=== PATIENT | male | born 1970 | race Two or more races ===

== ENCOUNTER → 2023-12-25 | Outpatient (CLI) | payer OTHER, SELFPAY ==
[2023-12-25 16:24] LABS: Basophils % (Auto) 0 % (0-2.5); Eosinophils # (Auto) 0.2 Thou/mm3 (0.0-0.5); Eosinophils % (Auto) 3 % (0-10); Hematocrit 40.3 % (41.0-53.0); Hemoglobin 14.1 g/dL (13.5-16.0); Immature Granulocytes % (Auto) 0 % (0-0); Immature Granulocytes Auto 0.02 Thou/mm3 (0.00-0.00); Lymphocytes # (Auto) 2.8 Thou/mm3 (1.0-4.8); Lymphocytes % (Auto) 38 % (10-50); Mean Corpuscular Hemoglobin 30.9 pg (25.0-35.0); Mean Corpuscular Volume 88 fL (80-100); Monocytes # (Auto) 0.5 Thou/mm3 (0.0-0.8); Monocytes % (Auto) 6 % (0-12); Neutrophils # (Auto) 3.9 Thou/mm3 (1.8-7.7); Neutrophils % (Auto) 53 % (37-80); Nucleated Red Blood Cell % 0 /100 WBC (0); Platelet Count 258 Thou/mm3 (140-440); RDW Standard Deviation 42.1 fL (35.1-43.9); Red Blood Count 4.56 Miln/mm3 (4.50-5.90); White Blood Count 7.5 Thou/mm3 (3.8-10.6)
[2023-12-25 16:44] LABS: Alanine Aminotransferase 38 U/L (10-49); Albumin, Serum 4.6 gm/dL (3.5-5.0); Albumin/Globulin Ratio 2.2 (1.2-2.2); Alkaline Phosphatase 100 U/L (46-116); Anion Gap 5 (7-16); Aspartate Amino Transferase 23 U/L (0-34); BUN/Creatinine Ratio 19 Ratio (12-20); Bilirubin,Total 0.3 mg/dL (0.3-1.2); Blood Urea Nitrogen 15 mg/dL (9-23); Calcium 9.5 mg/dL (8.3-10.6); Calcium (Corrected) 9.5 mg/dL (8.5-10.1); Carbon Dioxide 30.3 mMol/L (20.0-31.0); Chloride 103 mMol/L (98-107); Creatinine (Component) 0.8 mg/dL (0.6-1.3); Globulin 2.1 gm/dL (2.3-3.5); Glucose 97 mg/dL (74-106); Osmolality,Calculated 276 (275-295); Sodium 138 mMol/L (136-145); Total Protein 6.7 gm/dL (5.7-8.2); eGFR > 60 See Note
[2023-12-25 16:45] LABS: Glucose Estimated Average 105 mg/dL (80-131); Hemoglobin A1C 5.3 % Hgb (4.8-6.0)
== END | disposition home or self-care (01) ==
LOC: COPL 15:39
PROVIDERS: PCP Family Medicine; Referring Provider Specialist; Visit Provider Specialist
DX: K21.00 Gastro-esophageal reflux disease with esophagitis, without bleeding (principal); K44.9 Diaphragmatic hernia without obstruction or gangrene; R13.14 Dysphagia, pharyngoesophageal phase
CPT/HCPCS: 36415; 80053; 83036; 85025

== ENCOUNTER 2023-12-28 16:00 | Day surgery (SDC) | payer OTHER, SELFPAY ==
[2023-12-28] VITALS (8 sets, daily range): BP systolic 124–156; BP diastolic 81–102; PULSE 72–112; RESP 12–16; TEMP 36.1–36.8; O2SAT 95–100; BMI 27.3
--- NOTE | 2023-12-28 15:50 | EDNOTE_ITS ---
ED General RME/HPI General Arrival date/time: 12/28/23 15:22 53-year-old male presents emergency department today stating had endoscopy today patient was instructed by his surgeon to come to the ER for further evaluation and an additional procedure Limitations: no limitations Related Data Home Medications ?Medication ?Instructions ?Recorded ?Confirmed atorvastatin 10 mg tablet 10 mg PO QDAY 09/21/22 07/28/23 losartan 100 1 tab PO QDAY 07/28/23 07/31/23 mg-hydrochlorothiazide 12.5 mg tablet Previous Rx's ?Medication ?Instructions ?Recorded hydrocodone 10 mg-acetaminophen 1 tab PO Q6H PRN pain #28 tabs 08/01/23 325 mg tablet Allergies Allergy/AdvReac Type Severity Reaction Status Date / Time Penicillins Allergy Intermediate Hives Verified 12/28/23 20:01 Review of Systems Review of Systems Systems Reviewed: All systems reviewed, normal except as documented Constitutional Constitutional: Reports system reviewed and no additional complaints, except as documented, Denies fever(s) and Denies headache(s) Eyes Eyes: Reports system reviewed and no additional complaints, except as documented and Denies blurry vision ENT Ears, Nose, Mouth, and Throat: Reports system reviewed and no additional complaints, except as documented, Denies headache(s), Denies nasal congestion and Denies nasal discharge Cardiovascular Cardiovascular: Reports system reviewed and no additional complaints, except as documented, Denies chest pain and Denies dyspnea Respiratory Respiratory: Reports system reviewed and no additional complaints, except as documented, Denies chest congestion, Denies cough and Denies dyspnea Gastrointestinal Gastrointestinal: Reports system reviewed and no additional complaints, except as documented and Denies abdominal pain Integumentary/Breasts Skin/Breast: Reports system reviewed and no additional complaints, except as documented and Denies rash Neurologic Neurologic: Reports system reviewed and no additional complaints, except as documented, Reports as per HPI and Denies headache(s) Past Medical History Past Medical History NEUROLOGIC: Negative Neurological Disorders or Seizures CARDIAC: Positive Cardiac Disorders, Hypercholesterolemia and Hypertension (TAKES MED); Negative Congestive Heart Failure, Edema, Cellulitis or Varicose Veins RESPIRATORY: Negative Chronic Obstructive Pulmonary Disease (COPD), Tuberculosis, Pulmonary Embolism or Sleep Apnea GASTROINTESTINAL: Positive Gastrointestinal Disorders, Rubio's Esophagus, Hiatal Hernia and Gastroesophageal Reflux Disease; Negative Hepatitis or Colorectal Cancer GENITOURINARY: Negative Genitourinary Disorders, Renal Disease or Prostate Cancer REPRODUCTIVE: Negative Breast Cancer or Testicular Cancer MUSCULOSKELETAL: Negative Musculoskeletal Disorders, Bone Cancer or Carpal Tunnel Syndrome ENT: Negative Cataracts ENDOCRINE: Negative Endocrine Disorders, Diabetes Mellitus Type 1, Diabetes Mellitus Type 2, Hypoglycemia, Hyperthyroidism, Hypothyroidism, Parathyroid Disease, Pituitary Disease, Systemic Lupus Erythematosus, Syndrome of Inappropriate Antidiuretic Hormone (SIADH) or Graves' Disease HEMATOLOGIC: Negative Blood Disorders OTHER HISTORY: Negative Hospitalization, Autoimmune Disease, Shingles, Falls, Blood Transfusions, Blood Transfusion Reaction, Anesthesia Reactions, Organ Transplant, Chemotherapy, Radiation Therapy, MRSA, VRSA, Vancomycin-Resistant Enterococci, Human Immunodeficiency Virus (HIV), Chicken Pox, Measles, Mumps, Rubella ([place] Measles), Pertussis, Clostridium Difficile, Cancer, Breast Cancer, Cervical Cancer, Colorectal Cancer, Lung Cancer, Ovarian Cancer, Prostate Cancer or Testicular Cancer Family History FAMILY HISTORY: Positive Family Cardiac Disorders (FATHER,BROTHER ([place]),BROTHER (CVA)), Family Gastrointestinal Problems (BROTHER (COLON)), Family Cancer (BROTHER (COLON)) and Family Surgery (BROTHER); Negative Family Psychiatric Problems, Family Respiratory Disorders or Family Anesthesia Reaction Surgical History SURGICAL: Positive Abdominal Surgery (lap shital fund) and Arthroscopy (LEFT KNEE WITH MENISCECTOMY); Negative Cardiac Surgery, Pacemaker, Endocrine Surgery, Thyroidectomy, Ear Surgery, Tympanostomy Tube, Eye Surgery, Nose Surgery, Oral Surgery, Tonsillectomy, Adenoidectomy, Cochlear Implant, Corneal Transplant, Throat Surgery, Tracheostomy, Gastric Bypass Surgery, Gastrostomy, Bowel Surgery, Nephrectomy, Transurethral Resection, Joint Replacement, Amputation, Open Reduction Internal Fixation, Neurologic Surgery, Brain Shunt, Vasectomy or Organ Transplant Social History SMOKING STATUS: Never smoker ED Exam General Limitations: Present no limitations General appearance: Present alert and in no apparent distress Head Head exam: Present atraumatic, normocephalic and normal inspection Eye Eye exam: Present normal appearance, PERRL and EOMI; Absent conjunctival injection ENT ENT exam: Present normal exam, normal oropharynx and mucous membranes moist Neck Neck exam: Present normal inspection, full ROM and trachea midline Chest Chest inspection: Present normal inspection and symmetric chest wall rise Respiratory Respiratory exam: Present normal lung sounds bilaterally Cardiovascular Cardiovascular exam: Present regular rate, normal rhythm and normal heart sounds Abdominal Exam Abdominal exam: Present soft and normal bowel sounds; Absent distention, tenderness, guarding, rebound, rigidity, Reid's sign, Rovsing's sign or tenderness at McBurney's Point Abdominal tenderness: Absent RUQ or RLQ Extremities Exam Extremities exam: Present normal inspection and full ROM Back Exam Back exam: Present normal inspection and full ROM Neurological Exam Neurological exam: Present alert, oriented X3 and CN II-XII intact Psychiatric Psychiatric exam: Present normal affect and normal mood Skin Skin exam: Present warm, dry, intact and normal color Course Quality Measures none Orders Category Date Time Status Patient Condition Routine Admission 12/28/23 17:[address] in Surgical Day Care Routine Admission 12/28/23 17:34 Active Assess for bleeding NEEDED Care 12/28/23 19:31 Completed Clip Operative Site as Needed .On arrival Care 12/28/23 17:34 Completed Insert IV NOW Care 12/28/23 17:34 Completed May take PO meds w/sips of H2O NEEDED Care 12/28/23 17:34 Completed NPO after Midnight ONCE Care 12/28/23 17:34 Completed Notify provider NEEDED Care 12/28/23 17:34 Completed Obtain Written Consent For: NOW Care 12/28/23 17:34 Completed Vital Signs, Non-Routine Q10MX3 Care 12/28/23 19:45 Ordered Discharge Routine Discharge 12/28/23 20:21 Active CBC Stat Lab 12/28/23 16:02 Completed Comprehensive Metabolic Panel Stat Lab 12/28/23 16:02 Completed Partial Thromboplastin Time Stat Lab 12/28/23 16:02 Completed Prothrombin Time with INR Stat Lab 12/28/23 16:02 Completed Dexamethasone Inj [Decadron Inj] Med 12/28/23 18:37 Discontinued 10 mg .ROUTE .STK-MED ONE Midazolam Inj [Versed Inj] Med 12/28/23 18:37 Discontinued 2 mg .ROUTE .STK-MED ONE Ondansetron Inj [Zofran Inj] Med 12/28/23 18:37 Discontinued 4 mg .ROUTE .STK-MED ONE Propofol Inj [Diprivan Inj] Med 12/28/23 18:37 Discontinued 200 mg IV .STK-MED ONE Ringers Lactated 1000 ml [Lactated Ringers] 1,000 ml Med 12/28/23 17:45 Discontinued IV 60 mls/hr Rocuronium Inj [Zemuron Inj] Med 12/28/23 18:37 Discontinued 100 mg .ROUTE .STK-MED ONE Sugammadex Inj [Bridion Inj] Med 12/28/23 18:37 Discontinued 200 mg .ROUTE .STK-MED ONE fentaNYL INJ [Sublimaze Inj] Med 12/28/23 18:37 Discontinued 100 mcg .ROUTE .STK-MED ONE Code Status Routine Oth 12/28/23 17:34 Completed Transfer Order Routine Transfer 12/28/23 19:31 Active Vital Signs Vital signs: Vital Signs Temperature 97.0 F 12/28/23 19:38 Pulse Rate 112 H 12/28/23 19:38 Respiratory Rate 12 12/28/23 19:38 Blood Pressure 156/102 H 12/28/23 19:38 Pulse Oximetry (%) 100 12/28/23 19:38 Oxygen Flow Rate 6 12/28/23 19:38 O2 saturation 99% room air within the limits MDM Patient data External records reviewed:: [facility] previous records Clinical information provided by:: patient Social determinants that could affect healthcare access:: none Patient has the following chronic illnesses:: See history How is presenting disease/condition affected by chronic disease/condition?: u neffected by Evaluation data The following diagnostics were reviewed and interpreted by me:: lab results Lab and/or radiology exams considered but not ordered:: Labs ordered Interpretation Summary: Labs ordered Medications Medications considered but not ordered:: No meds here Medication administrations:: Medication Administration History Discontinued Medications Dexamethasone Sodium Phosphate (Dexamethasone Sod Phos Inj 10 Mg/Ml Vial) 10 mg .ROUTE .STK-MED ONE Stop: 12/28/23 18:38 Fentanyl Citrate (Fentanyl Cit Inj 50 Mcg/Ml Amp 2ml) 100 mcg .ROUTE .STK-MED ONE Stop: 12/28/23 18:38 Lactated Ringer's (Lactated Ringers) 1,000 mls @ 60 mls/hr IV .[id number] [facility] Stop: 12/29/23 17:44 Last Admin: 12/28/23 18:52 Dose: 60 mls/hr Documented By: TIMO Midazolam HCl (Midazolam Inj 1 Mg/Ml Vial 2 Ml) 2 mg .ROUTE .STK-MED ONE Stop: 12/28/23 18:38 Ondansetron HCl (Ondansetron Inj 2 Mg/Ml Inj 2 Ml) 4 mg .ROUTE .STK-MED ONE Stop: 12/28/23 18:38 Propofol (Propofol Inj 10 Mg/Ml Vial 20 Ml) 200 mg IV .STK-MED ONE Stop: 12/28/23 18:38 Rocuronium [place] (Rocuronium Inj 10 Mg/Ml Vial 10 Ml) 100 mg .ROUTE .STK-MED ONE Stop: 12/28/23 18:38 Sugammadex Sodium (Sugammadex Inj 100 Mg/Ml 2ml Vial) 200 mg .ROUTE .STK-MED ONE Stop: 12/28/23 18:38 No meds Consultations Consultation(s) initiated? (list below): Yes Consultation #1 (Physician, Specialty, Details): Dr. Lee Diagnosis Differential Diagnosis ED Complaint MDM: Foreign body obstruction Most likely diagnosis given after review of the tests above:: Foreign body ingestion/obstruction Admission Indicated Admission indicated?: indicated Explain why admission is indicated or not indicated:: Admission indicated Admission Request Was there a request for admission?: Yes Admission Attestation Admission request attestation: Discussed case with [] from Hospitalist service regarding admission. Discussed patients ED course, exam findings, labs, and radiology results. The Hospitalist [agrees,declines] to accept the patient for admission. Disposition Plan Disposition Plan: Admit Medical Decision Making MDM Narrative MDM Narrative: 53-year-old male presents emergency department today stating had endoscopy today patient was instructed by his surgeon to come to the ER for further evaluation and an additional procedure I spoke with Dr. Lee who reports the patient will need an additional procedure today he will put admission orders At time of my evaluation of the patient patient's appears well does not appear ill or toxic no difficulty breathing or swallowing Initial lab work obtained Differential Diagnosis Differential Diagnosis: Foreign body obstruction Medical Records Medical records reviewed: Yes I reviewed the patient's medical records. Lab Data 12/28/23 16:02 12/28/23 16:02 Labs: Lab Results 12/28/23 Range/Units 16:02 WBC 7.7 (3.8-10.6) Thou/mm3 RBC 4.79 (4.50-5.90) Miln/mm3 Hgb 14.9 (13.5-16.0) g/dL Hct 42.4 (41.0-53.0) % MCV 89 (80-100) fL MCH 31.1 (25.0-35.0) pg MCHC 35.1 (31.0-37.0) g/dl RDW Std Deviation 41.5 (35.1-43.9) fL Plt Count 249 (140-440) Thou/mm3 Neut % (Auto) 55 (37-80) % Lymph % (Auto) 36 (10-50) % Kerr % (Auto) 6 (0-12) % Eos % (Auto) 3 (0-10) % Baso % (Auto) 0 (0-2.5) % Neut # (Auto) 4.2 (1.8-7.7) Thou/mm3 Lymph # (Auto) 2.8 (1.0-4.8) Thou/mm3 Kerr # (Auto) 0.5 (0.0-0.8) Thou/mm3 Eos # (Auto) 0.2 (0.0-0.5) Thou/mm3 Baso # (Auto) 0.0 (0.0-0.2) Thou/mm3 Immature Gran # (Auto) 0.02 H (0.00-0.00) Thou/mm3 Absolute Nucleated RBC 0.00 (0.00-0.00) Thou/mm3 Immature Gran % 0 (0-0) % Nucleated RBC % 0 (0) /100 WBC PT 11.8 (9.0-12.2) Seconds INR 1.1 (0.9-1.3) APTT 27.1 (22.0-36.0) Seconds Sodium 139 (136-145) mMol/L Potassium 4.0 (3.4-5.1) mMol/L Chloride 105 (98-107) mMol/L Carbon Dioxide 29.6 (20.0-31.0) mMol/L Anion Gap 4 L (7-16) BUN 11 (9-23) mg/dL Creatinine 0.8 (0.6-1.3) mg/dL Estim Creat Clear Calc 108.0 (>60) mL/min eGFR > 60 (60 - ) See Note BUN/Creatinine Ratio 14 (12-20) Ratio Glucose 90 (74-106) mg/dL Calculated Osmolality 276 (275-295) Calcium 9.4 (8.3-10.6) mg/dL Corrected Calcium 9.4 (8.5-10.1) mg/dL Total Bilirubin 0.6 (0.3-1.2) mg/dL AST 22 (0-34) U/L ALT 34 (10-49) U/L Alkaline Phosphatase 91 (46-116) U/L Total Protein 7.2 (5.7-8.2) gm/dL Albumin 4.7 (3.5-5.0) gm/dL Globulin 2.5 (2.3-3.5) gm/dL Albumin/Globulin Ratio 1.9 (1.2-2.2) Discharge Plan Plan Patient Disposition: HOME (Self Care) Disposition Comment: Follow-up in office in 1 week Prescriptions/Referrals Prescriptions/Med Rec: No Action atorvastatin 10 mg tablet 10 mg PO QDAY Patient Comments: TAKE 1 TABLET BY MOUTH EVERY DAY losartan-hydrochlorothiazide 100-12.5 mg tablet 1 tab PO QDAY Patient Comments: TAKE 1 TABLET BY MOUTH EVERY DAY hydrocodone-acetaminophen 10-325 mg tablet 1 tab PO Q6H MDD 4 PRN (Reason: pain) Qty: 28 0RF Referrals: Anders Lee MD [Physician] - Patient/Caregiver Discharge Instructions Other Discharge Diet Instructions: Liquid diet for 3 days Education Materials: Anesthesia: General Anesthesia, Surgery Anesthesia After, Upper GI Endoscopy, ED Foreign Body Esophageal Rslv, [facility] General SDC Instructions- [place] Print Language: [place] Stand Alone Forms: Allie Award Info., Patient Portal Info Letter Discharge Order Discharge Orders: Discharge (Routine); Ordered 12/28/23 Ordered By: Anders Lee
[2023-12-28 16:11] LABS: Basophils % (Auto) 0 % (0-2.5); Eosinophils # (Auto) 0.2 Thou/mm3 (0.0-0.5); Eosinophils % (Auto) 3 % (0-10); Hematocrit 42.4 % (41.0-53.0); Hemoglobin 14.9 g/dL (13.5-16.0); Immature Granulocytes % (Auto) 0 % (0-0); Immature Granulocytes Auto 0.02 Thou/mm3 (0.00-0.00); Lymphocytes # (Auto) 2.8 Thou/mm3 (1.0-4.8); Lymphocytes % (Auto) 36 % (10-50); Mean Corpuscular HGB Conc 35.1 g/dl (31.0-37.0); Mean Corpuscular Hemoglobin 31.1 pg (25.0-35.0); Mean Corpuscular Volume 89 fL (80-100); Monocytes # (Auto) 0.5 Thou/mm3 (0.0-0.8); Monocytes % (Auto) 6 % (0-12); Neutrophils # (Auto) 4.2 Thou/mm3 (1.8-7.7); Neutrophils % (Auto) 55 % (37-80); Nucleated Red Blood Cell % 0 /100 WBC (0); Platelet Count 249 Thou/mm3 (140-440); RDW Standard Deviation 41.5 fL (35.1-43.9); Red Blood Count 4.79 Miln/mm3 (4.50-5.90); White Blood Count 7.7 Thou/mm3 (3.8-10.6)
[2023-12-28 16:27] LABS: Alanine Aminotransferase 34 U/L (10-49); Albumin, Serum 4.7 gm/dL (3.5-5.0); Albumin/Globulin Ratio 1.9 (1.2-2.2); Alkaline Phosphatase 91 U/L (46-116); Anion Gap 4 (7-16); Aspartate Amino Transferase 22 U/L (0-34); BUN/Creatinine Ratio 14 Ratio (12-20); Bilirubin,Total 0.6 mg/dL (0.3-1.2); Blood Urea Nitrogen 11 mg/dL (9-23); Calcium 9.4 mg/dL (8.3-10.6); Calcium (Corrected) 9.4 mg/dL (8.5-10.1); Carbon Dioxide 29.6 mMol/L (20.0-31.0); Chloride 105 mMol/L (98-107); Creatinine (Component) 0.8 mg/dL (0.6-1.3); Globulin 2.5 gm/dL (2.3-3.5); Glucose 90 mg/dL (74-106); Osmolality,Calculated 276 (275-295); Sodium 139 mMol/L (136-145); Total Protein 7.2 gm/dL (5.7-8.2); eGFR > 60 See Note
[2023-12-28 16:37] LABS: INR 1.1 (0.9-1.3); Partial Thromboplastin Time 27.1 Seconds (22.0-36.0); Prothrombin Time 11.8 Seconds (9.0-12.2)
[2023-12-28] MEDS: RINGERS LACTATED 1000 ML 1,000 ML 60 ML IV (18:52)
--- NOTE | 2023-12-28 19:38 | SUR.PHASEI ---
Pt. arrived to recovery via gurney, eyes closed, responds to verbal commands, VSS with exception of bp 156/102, Dr. Pop stated not worried about bp right now the dilation of the esophagus elevated pt.'s bp , will continue to monitor bp. Lung sounds clear, equal expansion, pt. had expectorant, encouraged pt. to spit into emesis bag. Report received from Marilin MARTINEZ and Dr. Pop.
--- NOTE | 2023-12-28 19:55 | SUR.PHASEII ---
Pt. AAOx3, sitting up, tolerating ice chips.
--- NOTE | 2023-12-28 20:21 | PD.SURHP ---
HPI Date of Admission December 28, 2023 Chief Complaint Chief Complaint: Dysphagia impaction of foreign body in the esophagus HPI This 53-year-old gentleman has had longstanding gastroesophageal reflux and large hiatal hernia 6 months ago he underwent Shital fundoplication that took care of his reflux symptoms he has no reflux anymore he also has a long segment Rbuio's about 10 cm and he is brought here because he was found to have impaction of the food material in the esophagus and is requiring dilatation. He will undergo upper GI endoscopy dilatation of the esophagus and removal of the foreign body from the esophagus. Informed consent was obtained. Past Medical History Past Medical History NEUROLOGIC: Negative Neurological Disorders or Seizures CARDIAC: Positive Cardiac Disorders, Hypercholesterolemia and Hypertension (TAKES MED); Negative Congestive Heart Failure, Edema, Cellulitis or Varicose Veins RESPIRATORY: Negative Chronic Obstructive Pulmonary Disease (COPD), Tuberculosis, Pulmonary Embolism or Sleep Apnea GASTROINTESTINAL: Positive Gastrointestinal Disorders, Rubio's Esophagus, Hiatal Hernia and Gastroesophageal Reflux Disease; Negative Hepatitis or Colorectal Cancer GENITOURINARY: Negative Genitourinary Disorders, Renal Disease or Prostate Cancer REPRODUCTIVE: Negative Breast Cancer or Testicular Cancer MUSCULOSKELETAL: Negative Musculoskeletal Disorders, Bone Cancer or Carpal Tunnel Syndrome ENT: Negative Cataracts ENDOCRINE: Negative Endocrine Disorders, Diabetes Mellitus Type 1, Diabetes Mellitus Type 2, Hypoglycemia, Hyperthyroidism, Hypothyroidism, Parathyroid Disease, Pituitary Disease, Systemic Lupus Erythematosus, Syndrome of Inappropriate Antidiuretic Hormone (SIADH) or Graves' Disease HEMATOLOGIC: Negative Blood Disorders OTHER HISTORY: Negative Hospitalization, Autoimmune Disease, Shingles, Falls, Blood Transfusions, Blood Transfusion Reaction, Anesthesia Reactions, Organ Transplant, Chemotherapy, Radiation Therapy, MRSA, VRSA, Vancomycin-Resistant Enterococci, Human Immunodeficiency Virus (HIV), Chicken Pox, Measles, Mumps, Rubella ([place] Measles), Pertussis, Clostridium Difficile, Cancer, Breast Cancer, Cervical Cancer, Colorectal Cancer, Lung Cancer, Ovarian Cancer, Prostate Cancer or Testicular Cancer Family History FAMILY HISTORY: Positive Family Cardiac Disorders (FATHER,BROTHER (DC),BROTHER (CVA)), Family Gastrointestinal Problems (BROTHER (COLON)), Family Cancer (BROTHER (COLON)) and Family Surgery (BROTHER); Negative Family Psychiatric Problems, Family Respiratory Disorders or Family Anesthesia Reaction Surgical History SURGICAL: Positive Abdominal Surgery (lap shital fund) and Arthroscopy (LEFT KNEE WITH MENISCECTOMY); Negative Cardiac Surgery, Pacemaker, Endocrine Surgery, Thyroidectomy, Ear Surgery, Tympanostomy Tube, Eye Surgery, Nose Surgery, Oral Surgery, Tonsillectomy, Adenoidectomy, Cochlear Implant, Corneal Transplant, Throat Surgery, Tracheostomy, Gastric Bypass Surgery, Gastrostomy, Bowel Surgery, Nephrectomy, Transurethral Resection, Joint Replacement, Amputation, Open Reduction Internal Fixation, Neurologic Surgery, Brain Shunt, Vasectomy or Organ Transplant Social History SMOKING STATUS: Never smoker Meds Home Medications and Allergies Home Medications ?Medication ?Instructions ?Recorded ?Confirmed ?Type atorvastatin 10 mg tablet 10 mg PO QDAY 09/21/22 07/28/23 History losartan 100 1 tab PO QDAY 07/28/23 07/31/23 History mg-hydrochlorothiazide 12.5 mg tablet Allergies Allergy/AdvReac Type Severity Reaction Status Date / Time Penicillins Allergy Intermediate Hives Verified 12/28/23 20:01 Exam Vital Signs Temp Pulse Resp BP Pulse Ox O2 Flow Rate 96.9 F 83 13 146/100 H 95 3 12/28/23 19:58 12/28/23 20:08 12/28/23 20:08 12/28/23 20:08 12/28/23 20:08 12/28/23 19:43 Constitutional Constitutional: no acute distress Routine HEENT Exam Head: Present normocephalic Eye: Present EOMI and PERRL ENT: Present mucous membranes moist Routine Neck Exam Neck: Present supple and trachea midline Routine Chest/Breast/Axilla Exam Chest wall: Absent tenderness or mass Routine Respiratory Exam Respiratory: Present chest non-tender, lungs clear, normal breath sounds and no resp distress; Absent respiratory distress Routine Cardiovascular Exam Cardiovascular: Present RRR Routine Abdominal Exam Abdominal: Present soft and normoactive bowel sounds Routine Extremities Exam Extremities: Present full ROM Routine Skin Exam Skin: Present intact, dry and warm Routine Neurological Exam Neurological: Present alert, oriented X3 and CN II-XII intact Routine Psychiatric Exam Psychiatric: Present normal affect and normal thought process Assessment & Plan Problem List (1) Barretts esophagus: Status: Acute (2) Esophageal foreign body: Status: Acute (3) Status post laparoscopic fundoplication: Status: Acute (4) Esophageal stenosis: Status: Acute (5) Esophageal dysmotility: Status: Acute Plan Upper GI endoscopy biopsy dilatation and removal of the foreign body. Informed consent was obtained. Quality Measures Quality Measures none
== END 2023-12-28 20:50 | disposition home or self-care (01) ==
PROVIDERS: Nurse Practitioner Primary Care; Referring Provider Specialist; Visit Provider Specialist
PROC: (CPT 43239; principal; 2023-12-28 17:00)
DX: K22.70 Barrett's esophagus without dysplasia (principal); K22.2 Esophageal obstruction; T18.198A Other foreign object in esophagus causing other injury, initial encounter; K22.89 Other specified disease of esophagus; E78.00 Pure hypercholesterolemia, unspecified; I10 Essential (primary) hypertension; K44.9 Diaphragmatic hernia without obstruction or gangrene; K21.9 Gastro-esophageal reflux disease without esophagitis
CPT/HCPCS: 43239; 43450; 43247; 36415; 80053; 85025; 85610; 85730; 99283; J1100; J2250; J2405; J2704; J3010; J3490; J7120

== ENCOUNTER → 2024-04-24 | Outpatient (CLI) | payer OTHER, SELFPAY ==
[2024-04-24 08:08] LABS: Collection Type, Urine Clean Catch
[2024-04-24 08:29] LABS: Basophils % (Auto) 0 % (0-2.5); Eosinophils # (Auto) 0.1 Thou/mm3 (0.0-0.5); Eosinophils % (Auto) 1 % (0-10); Hematocrit 40.4 % (41.0-53.0); Hemoglobin 14.4 g/dL (13.5-16.0); Immature Granulocytes % (Auto) 0 % (0-0); Immature Granulocytes Auto 0.01 Thou/mm3 (0.00-0.00); Lymphocytes # (Auto) 1.7 Thou/mm3 (1.0-4.8); Lymphocytes % (Auto) 26 % (10-50); Mean Corpuscular HGB Conc 35.6 g/dl (31.0-37.0); Mean Corpuscular Hemoglobin 32.1 pg (25.0-35.0); Mean Corpuscular Volume 90 fL (80-100); Monocytes # (Auto) 0.4 Thou/mm3 (0.0-0.8); Monocytes % (Auto) 6 % (0-12); Neutrophils # (Auto) 4.4 Thou/mm3 (1.8-7.7); Neutrophils % (Auto) 67 % (37-80); Nucleated Red Blood Cell % 0 /100 WBC (0); Platelet Count 236 Thou/mm3 (140-440); RDW Standard Deviation 41.1 fL (35.1-43.9); Red Blood Count 4.49 Miln/mm3 (4.50-5.90); White Blood Count 6.7 Thou/mm3 (3.8-10.6)
[2024-04-24 08:32] LABS: Bilirubin,Urine Negative (Negative); Blood,Urine Trace (Negative); Clarity,Urine Clear (Clear/Hazy); Color,Urine Yellow (Lt Yel-Yel); Culture Indicated,Urine Not Indicated; Glucose, Urine Negative (Negative); Ketones,Urine Negative (Negative); Leukocyte Esterase,Urine Negative (Negative); Nitrite,Urine Negative (Negative); Protein,Urine Trace (Neg - Trace); RBC,Urine 5 /hpf (0-3); Specific Gravity,Urine 1.033 (1.001-1.035); Squamous Epithelial Cell,Urine < 1 /hpf (0-5); Urobilinogen,Urine Negative mg/dL (0.0-1.0); WBC,Urine < 1 /hpf (0-5)
[2024-04-24 08:38] LABS: Glucose Estimated Average 103 mg/dL (80-131); Hemoglobin A1C 5.2 % Hgb (4.8-6.0)
[2024-04-24 08:54] LABS: Prostate Specific Antigen 0.76 ng/mL (0-4.00)
[2024-04-24 08:59] LABS: Alanine Aminotransferase 18 U/L (10-49); Albumin, Serum 4.4 gm/dL (3.5-5.0); Albumin/Globulin Ratio 2.1 (1.2-2.2); Alkaline Phosphatase 81 U/L (46-116); Anion Gap 8 (7-16); Aspartate Amino Transferase < 8 U/L (0-34); BUN/Creatinine Ratio 20 Ratio (12-20); Bilirubin,Total 0.4 mg/dL (0.3-1.2); Blood Urea Nitrogen 16 mg/dL (9-23); Calcium 9.3 mg/dL (8.3-10.6); Calcium (Corrected) 9.3 mg/dL (8.5-10.1); Carbon Dioxide 28.4 mMol/L (20.0-31.0); Cardiac Risk Estimate 3.5 RATIO (4.0-6.7); Chloride 105 mMol/L (98-107); Cholesterol 133 mg/dL (132-200); Creatinine (Component) 0.8 mg/dL (0.6-1.3); Globulin 2.1 gm/dL (2.3-3.5); Glucose 104 mg/dL (74-106); HDL Cholesterol 38 mg/dL (40-60); LDL Cholesterol,Calculated 71 mg/dL (0-130); Osmolality,Calculated 282 (275-295); Potassium 4.2 mMol/L (3.4-5.1); Sodium 141 mMol/L (136-145); Thyroid Stimulating Hormone 0.63 uIU/mL (0.55-4.78); Total Protein 6.5 gm/dL (5.7-8.2); Triglycerides 118 mg/dL (30-150); eGFR > 60 See Note
== END | disposition home or self-care (01) ==
LOC: COPL 07:08
PROVIDERS: PCP Family Medicine; Referring Provider Physician Assistant; Visit Provider Physician Assistant
DX: K21.00 Gastro-esophageal reflux disease with esophagitis, without bleeding (principal); K44.9 Diaphragmatic hernia without obstruction or gangrene; R13.14 Dysphagia, pharyngoesophageal phase
CPT/HCPCS: 36415; 80053; 80061; 81001; 83036; 84153; 84443; 85025

== ENCOUNTER 2024-05-24 07:25 | Day surgery (SDC) | payer OTHER, SELFPAY ==
[2024-05-23 12:56] VITALS: BMI 26.6
[2024-05-24] VITALS (18 sets, daily range): BP systolic 113–143; BP diastolic 79–101; PULSE 57–119; RESP 8–19; TEMP 36.1–36.3; O2SAT 94–100; BMI 27.3
[2024-05-24] MEDS: BENZOCAINE 20% (Hurricaine) SPRAY 1 DOSE TOP (08:53)
[2024-05-24] MEDS: RINGERS LACTATED 1000 ML 1,000 ML 125 ML IV (08:53)
[2024-05-24] MEDS: DiphenhydrAMINE INJ 50 MG/ML VIAL 25 MG IV (08:58)
[2024-05-24] MEDS: MIDAZOLAM INJ 1 MG/ML VIAL 2 ML (ASD USE ONLY) 2 MG IV (09:00)
[2024-05-24] MEDS: ONDANSETRON INJ 2 MG/ML INJ 2 ML 4 MG IV ×2 (09:10→09:56)
[2024-05-24] MEDS: fentaNYL CIT INJ 50 mCg/ML AMP 2ML (ASD USE ONLY) IV (09:31)
== END 2024-05-24 10:45 | disposition home or self-care (01) ==
PROVIDERS: PCP Family Medicine; Referring Provider Specialist; Visit Provider Specialist
PROC: (CPT 43239; principal; 2024-05-24 08:30)
DX: K22.70 Barrett's esophagus without dysplasia (principal); Z98.890 Other specified postprocedural states
CPT/HCPCS: 43239; 43248; A4649; J1200; J2250; J2405; J3010; J7120; A9270

== ENCOUNTER → 2024-11-27 | Outpatient (CLI) | payer OTHER, SELFPAY ==
--- NOTE | 2024-11-27 10:43 | XR_ITS ---
Examination: Lumbar spine, 5 views Technique: Lumbar spine AP, lateral, coned lateral lower lumbar spine, bilateral obliques 5 views Exam date and time: November 27, 2024, 1106 hours, comparison April 24, 2023 INDICATIONS: Low back pain months FINDINGS: Mild osteopenia. Prominent lumbar spondylosis. No lumbar fracture. No spondylolisthesis. Mild to moderate diffuse lumbar degenerative disc disease IMPRESSION: Mild to moderate diffuse lumbar degenerative disc disease
== END | disposition home or self-care (01) ==
PROVIDERS: PCP Family Medicine; Referring Provider Chiropractor; Visit Provider Chiropractor
DX: M51.360 Other intervertebral disc degeneration, lumbar region with discogenic back pain only (principal)
CPT/HCPCS: 72110